=== PATIENT | female | born 1955 | race Asian ===

== ENCOUNTER 2020-02-13 15:48 | Emergency (ER) | payer OTHER ==
[~2020-02-13] VITALS: Ht 148.6 cm; Wt 53.1 kg
[2020-02-13 16:04] VITALS: BP 168/96
--- NOTE | 2020-02-13 16:28 | NUR ---
BIB SON C/O SANTOS FOOT & RIGHT THUMB PAIN & SWELLING X 3 MONTHS.MED HX: HTN. MED HX: LISISNOPRIL , FUROSEMIDE. DENIES N/V/D; SKIN IS PINK/WARM/DRY; AAOX4 WITH EVEN AND STEADY GAIT; LUNGS CLEAR BL; HR EVEN AND REGULAR; PT DENIES ANY FEVER, CP, SOB, OR COUGH AT THIS TIME; PATIENT STATES PAIN OF 8/10 AT THIS TIME. PATIENT POSITIONED FOR COMFORT; HOB ELEVATED; BEDRAILS UP X1; BED DOWN. ER MD MADE AWARE OF PT STATUS.
[2020-02-13] MEDS ORDERED: ACETAMINOPHEN 325 MG TAB PO ONE (16:35)
--- NOTE | 2020-02-13 16:43 | NUR ---
LAB AT BEDSIDE.
[2020-02-13 16:53] LABS: BASOPHILS # (AUTO) 0.1 K/uL (0.00-0.22); BASOPHILS % (AUTO) 0.6 % (0.0-2.0); EOSINOPHILS % (AUTO) 0.4 % (0.0-4.0); HEMATOCRIT 37.1 % (36-48); HEMOGLOBIN 12.3 g/dL (12.0-16.0); LYMPHOCYTES # (AUTO) 2.2 K/uL (2.5-16.5); LYMPHOCYTES % (AUTO) 25.9 % (20.5-51.1); MEAN CORPUSCULAR HEMOGLOBIN 29 pg (27-31); MEAN CORPUSCULAR HGB CONC 33 g/dL (33-37); MEAN CORPUSCULAR VOLUME 86.8 fL (80-94); MONOCYTES # (AUTO) 0.7 K/uL (0.8-1.0); MONOCYTES % (AUTO) 8.9 % (1.7-9.3); NEUTROPHILS # (AUTO) 5.4 K/uL (1.8-7.7); NEUTROPHILS % (AUTO) 64.2 % (42.2-75.2); PLATELET COUNT (AUTO) 466 K/uL (140-450); RED BLOOD CELL COUNT(AUTO) 4.28 MIL/uL (4.20-5.40); RED CELL DISTRIBUTION WIDTH 13.2 % (11.6-13.7); WHITE BLOOD COUNT (AUTO) 8.4 K/uL (4.8-10.8)
[2020-02-13 17:11] LABS: ANION GAP 12.5 (8-16); CREATININE 0.7 mg/dL (0.6-1.3); POTASSIUM 3.5 mmol/L (3.5-5.1)
[2020-02-13 17:48] VITALS: BP 143/80
== END 2020-02-13 17:47 | disposition home or self-care (01) ==
LOC: MED 15:48
DX: I11.0 Hypertensive heart disease with heart failure (principal); M25.472 Effusion, left ankle; M13.0 Polyarthritis, unspecified
CPT/HCPCS: 36415; 71045; 80048; 81002; 83880; 84484; 85025; 93005; 99285; Q0092

== ENCOUNTER 2021-09-12 10:04 | Observation (INO) | payer OTHER ==
[~2021-09-12] VITALS: Ht 147.3 cm; Wt 52.6 kg
[2021-09-12 10:09] VITALS: BP 150/73
--- NOTE | 2021-09-12 10:16 | NUR ---
Sana weiss in [facility] - 09/12/21 at 1018 by [email or web address] THERESA
--- NOTE | 2021-09-12 10:29 | NUR ---
66 Y/O F BIB SELF C/O DIZZINESS, PERES, N/V X YESTERDAY, WORSE THIS MORNING AND WHEN STANDING UP. NKA PMH: HTN
--- NOTE | 2021-09-12 11:08 | NUR ---
DR LAINEZ AT BEDSIDE.
[2021-09-12] MEDS ORDERED: MECLIZINE 25 MG TAB PO ONE (11:15)
[2021-09-12] MEDS ORDERED: NACL 0.9% 1,000 ML IV ONE (11:15)
[2021-09-12] MEDS ORDERED: ACETAMINOPHEN EXTRA STRENGTH 500 MG TAB PO ONE (11:20)
--- NOTE | 2021-09-12 11:22 | NUR ---
PT TO CT VIA [facility].
[2021-09-12 11:59] LABS: BASOPHILS % (AUTO) 0.3 % (0.0-2.0); HEMATOCRIT 38.4 % (36-48); HEMOGLOBIN 12.6 g/dL (12.0-16.0); LYMPHOCYTES # (AUTO) 1.5 K/uL (2.5-16.5); LYMPHOCYTES % (AUTO) 15.1 % (20.5-51.1); MEAN CORPUSCULAR HEMOGLOBIN 28 pg (27-31); MEAN CORPUSCULAR HGB CONC 33 g/dL (33-37); MEAN CORPUSCULAR VOLUME 84.1 fL (80-94); MONOCYTES # (AUTO) 0.4 K/uL (0.8-1.0); MONOCYTES % (AUTO) 4.2 % (1.7-9.3); NEUTROPHILS # (AUTO) 7.7 K/uL (1.8-7.7); NEUTROPHILS % (AUTO) 80.4 % (42.2-75.2); PLATELET COUNT (AUTO) 446 K/uL (140-450); RED BLOOD CELL COUNT(AUTO) 4.56 MIL/uL (4.20-5.40); RED CELL DISTRIBUTION WIDTH 15.1 % (11.6-13.7); WHITE BLOOD COUNT (AUTO) 9.6 K/uL (4.8-10.8)
[2021-09-12 12:20] LABS: ALBUMIN 3.3 g/dL (3.4-5.0); ANION GAP 12.3 (8-16); CARBON DIOXIDE 27.2 mmol/L (21-32); CREATININE 0.5 mg/dL (0.6-1.3); MAGNESIUM 2.3 mg/dL (1.8-2.4); POTASSIUM 3.5 mmol/L (3.5-5.1); TOTAL BILIRUBIN 0.2 mg/dL (0.0-1.0)
[2021-09-12] MEDS ORDERED: diazePAM 5 MG TAB PO ONE (13:00)
[2021-09-12] MEDS ORDERED: ASPI81EC20 PO (13:07)
[2021-09-12] MEDS ORDERED: MECL-303 PO (13:07)
[2021-09-12] MEDS ORDERED: SIMV-33 PO (13:07)
[2021-09-12] MEDS ORDERED: CRUSHER, PILL MC ONE (13:34)
[2021-09-12] MEDS ORDERED: AMLO10TA PO (14:04)
--- NOTE | 2021-09-12 14:50 | NUR ---
GERONIMO SWABED AND WALKED TO THE LAB.
[2021-09-12] MEDS ORDERED: ACETAMINOPHEN 325 MG TAB PO PRN (15:40)
[2021-09-12] MEDS ORDERED: ONDANSETRON 4 MG/2 ML VIAL IVP PRN (15:40)
[2021-09-12] MEDS ORDERED: MORPHINE SULFATE 4 MG/ML SYR IVP PRN (15:40)
[2021-09-12] MEDS ORDERED: POTASSIUM CHLORIDE 10 MEQ TABER PO PRN (15:40)
[2021-09-12] MEDS ORDERED: HYDROcodone/APAP 5/325 MG 1 TAB TAB PO PRN (15:40)
[2021-09-12] MEDS ORDERED: KCL 20 MEQ/WATER INJ PREMIX 200 ML IV PRN (15:40)
[2021-09-12] MEDS ORDERED: MAG SULF 2000 MG/WATER PREMIX 50 ML IV PRN (15:40)
[2021-09-12] MEDS ORDERED: IBUPROFEN 400 MG TAB PO PRN (15:40)
[2021-09-12] MEDS ORDERED: LORazepam 1 MG TAB PO PRN (15:40)
[2021-09-12] MEDS ORDERED: MAGNESIUM OXIDE 400 MG TAB PO PRN (15:40)
[2021-09-12] MEDS: NACL 0.9% 1,000 ML IV SCH (16:09)
[2021-09-12 16:33] VITALS: BP 110/54
--- NOTE | 2021-09-12 16:33 | NUR ---
[facility], BEDSIDE REPORT GIVEN BY KAMILA. PT AWAKE, ALERT AND ABLE TO MAKE NEEDS KNOWN BY SPEAKS AMHARIC ONLY. SON AT BEDSIDE. BREATHING SYMMETRICAL ON ROOM AIR. DENIES PAIN AT THIS TIME. DENIES DIZZINESS AT THIS TIME. PT IS A [employer] AND FAMILY REQUESTS NO PORK, SEAFOOD OR BEEF ON MEALS. CALLED [facility] AND SPOKE WITH REDD AND MADE AWARE. LAC 20G WITH NS AT 80CC/HR. CALL LIGHT WITHIN REACH. ALL SAFETY MEASURES IN PLACE.
--- NOTE | 2021-09-12 16:39 | NUR ---
Pt report given to JIM POOLE. Transfer of care at this time.
--- NOTE | 2021-09-12 19:15 | NUR ---
ENDORSED PT TO STICK PULLER NURSE, PT IN STABLE CONDITION
--- NOTE | 2021-09-12 19:30 | NUR ---
RECEIVED BEDSIDE REPORT FROM DAY SHIFT NURSE. PATIENT IS AWAKE ON THE PHONE. SON AT BEDSIDE. RESPIRATION EVEN UNLABORED ON ROOM AIR, NO DISTRESS NOTED. SKIN IS WARM AND DRY. IV PATENT AND INTACT. PLAN OF CARE WAS DISCUSSED. ALL SAFETY MEASURES IN PLACE. BED IS AT LOW POSITION. CALL LIGHT WITHIN REACH. WILL CONTINUE TO MONITOR.
[2021-09-12 20:00] VITALS: BP 127/58
--- NOTE | 2021-09-12 21:00 | NUR ---
MADE ROUNDS, PATIENT SLEEPING RESPIRATION EVEN UNLABORED ON ROOM AIR NO DISTRESS NOTED. WILL CONTINUE TO MONITOR
[2021-09-12] MEDS ORDERED: MECLIZINE 25 MG TAB PO PRN (21:45)
[2021-09-13] VITALS: BP 125/68
--- NOTE | 2021-09-13 00:10 | NUR ---
VITALS WERE TAKEN.
--- NOTE | 2021-09-13 01:45 | NUR ---
MADE ROUNDS, PATIENT SLEEPING RESPIRATION EVEN UNLABORED ON ROOM AIR NO DISTRESS NOTED. WILL CONTINUE TO MONITOR
[2021-09-13 04:00] VITALS: BP 124/69
--- NOTE | 2021-09-13 04:10 | NUR ---
VITALS WERE TAKEN
[2021-09-13] MEDS: NACL 0.9% 1,000 ML IV SCH (04:36)
[2021-09-13 05:32] LABS: BASOPHILS % (AUTO) 0.5 % (0.0-2.0); EOSINOPHILS # (AUTO) 0.1 K/uL (0-0.4); HEMATOCRIT 37.2 % (36-48); HEMOGLOBIN 12.4 g/dL (12.0-16.0); LYMPHOCYTES # (AUTO) 2.3 K/uL (2.5-16.5); LYMPHOCYTES % (AUTO) 29.3 % (20.5-51.1); MEAN CORPUSCULAR HEMOGLOBIN 28 pg (27-31); MEAN CORPUSCULAR HGB CONC 33 g/dL (33-37); MONOCYTES # (AUTO) 0.6 K/uL (0.8-1.0); MONOCYTES % (AUTO) 7.7 % (1.7-9.3); NEUTROPHILS # (AUTO) 4.9 K/uL (1.8-7.7); NEUTROPHILS % (AUTO) 61.5 % (42.2-75.2); PLATELET COUNT (AUTO) 431 K/uL (140-450); RED BLOOD CELL COUNT(AUTO) 4.38 MIL/uL (4.20-5.40); RED CELL DISTRIBUTION WIDTH 15.1 % (11.6-13.7)
[2021-09-13 06:06] LABS: ANION GAP 11.2 (8-16); CREATININE 0.5 mg/dL (0.6-1.3); MAGNESIUM 2.1 mg/dL (1.8-2.4); POTASSIUM 3.2 mmol/L (3.5-5.1); TOTAL BILIRUBIN 0.2 mg/dL (0.0-1.0)
--- NOTE | 2021-09-13 06:10 | NUR ---
URINE COLLECTED, SENT TO LAB
[2021-09-13 07:25] LABS: APPEARANCE,URINE CLEAR (CLEAR); BILIRUBIN,URINE NEGATIVE (NEGATIVE); BLOOD, URINE TRACE-I (NEGATIVE); COLOR,URINE YELLOW (YELLOW); LEUKOCYTE ESTERASE ,URINE 1+ (NEGATIVE); NITRITE, URINE NEGATIVE (NEGATIVE); UGLUCOSE NEGATIVE (NEGATIVE)
--- NOTE | 2021-09-13 07:30 | NUR ---
ENDORSED PATIENT TO DAY SHIFT NURSE FOR CONTINUITY OF CARE
[2021-09-13 07:45] LABS: RBC,URINE 0-5 /HPF (0-5); WBC,URINE 0-5 /HPF (0-5)
[2021-09-13 07:46] LABS: CALCIUM OXALATE CRYSTALS,UR None Seen /HPF (None Seen); COARSE GRANULAR CASTS,URINE None Seen /LPF (None Seen); FINE GRANULAR CASTS,URINE None Seen /LPF (None Seen); HYALINE CASTS, URINE None Seen /LPF (None Seen); OTHER CASTS, URINE None Seen /LPF (None Seen); OTHER CRYSTALS,URINE None Seen /HPF (None Seen); RED BLOOD CELL CASTS,URINE None Seen /LPF (None Seen); TRICHOMONAS,URINE None Seen /HPF (None Seen); TRIPLE PHOSPHATE CRYSTAL,UR None Seen /HPF (None Seen); URIC ACID CRYSTALS,URINE None Seen /HPF (None Seen); URINE AMORPHOUS URATE None Seen /HPF (None Seen); WAXY CASTS,URINE None Seen /LPF (None Seen); YEAST,URINE None Seen /HPF (None Seen)
--- NOTE | 2021-09-13 07:52 | NUR ---
RECEIVED REPORT FROM [employer] PROFESSOR FOR CONTINUITY OF CARE. PATIENT ALERT AWAKE ORIENTED X4, NOT IN DISTRESS NOTED. WITH IVF ON GOING AND INFUSING WELL. ON MONITOR SHOWS SR. DENIES CHEST PAIN, NO DIZZINESS. NEEDS ATTENDED. WILL CONTINUE TO MONITOR.
[2021-09-13 08:00] VITALS: BP 136/68
--- NOTE | 2021-09-13 08:54 | NUR ---
PATIENT HAS BEEN SCREENED AND CATEGORIZED LOW NUTRITION RISK. PATIENT WILL BE SEEN WITHIN 7 DAYS OF ADMISSION. 09/19/[address]
[2021-09-13 12:00] VITALS: BP 130/72
[2021-09-13] MEDS ORDERED: MECL-231 PO (14:25)
[2021-09-13] MEDS ORDERED: CEFU500T73 PO (14:25)
[2021-09-13] MEDS ORDERED: ASPI-1822 PO (14:25)
--- NOTE | 2021-09-13 14:30 | NUR ---
DC PLANNING: THE PATIENT PRESENTED FROM HOME TO THE ER WITH C/O ACUTE DIZZINESS AND PERES, DIZZINESS EXACERBATED WHEN GOING FROM SITTING TO STANDING POSITION. H/O HTN, LABS WNL'S, EKG NEGATIVE FOR ACUTE FINDINGS. CT HEAD ALSO NEGATIVE FOR ACUTE FINDINGS, PATIENT GIVEN IVF'S, MECLIZINE AND DIAZEPAM AND ADMITTED FOR OBSERVATION BECAUSE OF PERSISTENT VERTIGO AND GAIT ATAXIA. P.T. EVALUATION, PATIENT ABLE TO AMBULATE 120 FEET WITHOUT ASSIST, DC'D FROM P.T. SERVICE. CM SPOKE WITH THE PATIENT AND HER SON AT BEDSIDE PATIENT IS CITIZEN OF [place] SPEAKING ONLY. SHE LIVES IN A GROUND FLOOR APARTMENT WITH HER SON, DAUGHTER IN LAW AND GRANDCHILDREN. SHE IS INDEPENDENT IN ALL ACTIVITIES AND HAS NO H/O HOME HEALTH OR DME. SHE SEES HER PCP DR ELIZABETH REGULARLY AND IS ASSISTED BY HER FAMILY WITH ANY NEEDS. NO DC NEEDS IDENTIFIED, PLAN IS FOR HER TO RETURN HOME WHEN CLINICALLY STABLE, HER SON WILL PROVIDE TRANSPORT HOME. CM WILL FOLLOW.
--- NOTE | 2021-09-13 14:40 | NUR ---
SEEN BY DR. KEITH WITH DC ORDER AND NOTED.
--- NOTE | 2021-09-13 14:59 | NUR ---
PATIENT DC TO HOME ACCOMPANIED BY THE SON AMBULATORY, NOT IN ANY DISTRESS NOTED, DC INSTRUCTION AND PRESCRIPTION GIVEN TO THE SON PRISS AND VERBALIZED UNDERSTANDING. IN STABLE CONDITION.
== END 2021-09-13 15:05 | disposition home or self-care (01) ==
LOC: MED 10:04 → MTU 15:44
PROVIDERS: ADMIT Internal Medicine; ATTEND Internal Medicine
DX: R42 Dizziness and giddiness (principal); Z20.822 Contact with and (suspected) exposure to COVID-19; I10 Essential (primary) hypertension; R82.90 Unspecified abnormal findings in urine; R26.89 Other abnormalities of gait and mobility; Z86.73 Personal history of transient ischemic attack (TIA), and cerebral infarction without residual deficits; Z79.899 Other long term (current) drug therapy
CPT/HCPCS: 36415; 70450; 80053; 81001; 82948; 83735; 85025; 87081; 87086; 87426; 93005; 96360; 96361; 97116; 97162; 97530; 99284; G0378; J7030; J8597

== ENCOUNTER 2022-12-17 07:28 | Emergency (ER) | payer OTHER ==
[~2022-12-17] VITALS: Ht 149.9 cm; Wt 56.7 kg
[~2022-12-17 07:28] MED LIST: AMLO10TA PO; ASPI-1822 PO; CEFU500T73 PO; MECL-231 PO
[2022-12-17 07:46] VITALS: BP 130/75; PULSE 75; RESP 20; TEMP 98; O2SAT 99
[2022-12-17 08:35] VITALS: O2SAT 99
[2022-12-17] MEDS ORDERED: HYDROcodone/APAP 5/325 MG 1 TAB TAB PO ONE (08:35)
[2022-12-17] MEDS ORDERED: KETOROLAC 30 MG/ML VIAL IM ONE (08:35)
--- NOTE | 2022-12-17 08:40 | NUR ---
AWAKE ALERT CONVERSANT, FAMILY AT BEDSIDE
[2022-12-17] MEDS ORDERED: CYCL-711 PO (09:14)
[2022-12-17] MEDS ORDERED: NAPR-1704 PO (09:14)
--- NOTE | 2022-12-17 09:27 | NUR ---
Patient discharged with v/s stable. Written and verbal after care instructions given and explained. Patient alert, oriented and verbalized understanding of instructions. Ambulatory with steady gait. All questions addressed prior to discharge. ID band removed. Patient advised to follow up with PMD. Rx of FLEXERIL, NAPROXEN given. Patient educated on indication of medication including possible reaction and side effects. Opportunity to ask questions provided and answered.
== END 2022-12-17 09:27 | disposition home or self-care (01) ==
LOC: MED 07:28
DX: M54.12 Radiculopathy, cervical region (principal); M79.601 Pain in right arm; M79.602 Pain in left arm; I10 Essential (primary) hypertension; Z79.899 Other long term (current) drug therapy
CPT/HCPCS: 72040; 96372; 99283; J1885

== ENCOUNTER 2023-07-15 20:33 | Emergency (ER) | payer OTHER ==
[~2023-07-15] VITALS: Ht 147.3 cm; Wt 52.2 kg
[~2023-07-15 20:33] MED LIST changes: +CYCL-711 PO; +NAPR-1704 PO
[2023-07-15 20:38] VITALS: BP 143/84; PULSE 67; RESP 16; TEMP 98.4; O2SAT 97
[2023-07-15 21:11] VITALS: O2SAT 97
[2023-07-15] MEDS: ACETAMINOPHEN EXTRA STRENGTH 500 MG TAB PO ONE (21:16)
[2023-07-15 21:39] LABS: BASOPHILS # (AUTO) 0.1 K/uL (0.00-0.22); BASOPHILS % (AUTO) 0.7 % (0.0-2.0); EOSINOPHILS # (AUTO) 0.2 K/uL (0-0.4); EOSINOPHILS % (AUTO) 2.1 % (0.0-4.0); HEMATOCRIT 36.8 % (36-48); HEMOGLOBIN 12.8 g/dL (12.0-16.0); LYMPHOCYTES # (AUTO) 2.4 K/uL (2.5-16.5); LYMPHOCYTES % (AUTO) 28.3 % (20.5-51.1); MEAN CORPUSCULAR HEMOGLOBIN 30 pg (27-31); MEAN CORPUSCULAR HGB CONC 35 g/dL (33-37); MEAN CORPUSCULAR VOLUME 85.4 fL (80-94); MONOCYTES % (AUTO) 11.2 % (1.7-9.3); NEUTROPHILS % (AUTO) 57.7 % (42.2-75.2); PLATELET COUNT (AUTO) 483 K/uL (140-450); RED CELL DISTRIBUTION WIDTH 14.8 % (11.6-13.7); WHITE BLOOD COUNT (AUTO) 8.6 K/uL (4.8-10.8)
[2023-07-15 22:05] LABS: BILIRUBIN,URINE NEGATIVE (NEGATIVE); BLOOD, URINE TRACE-I (NEGATIVE); COLOR,URINE YELLOW (YELLOW); LEUKOCYTE ESTERASE ,URINE TRACE (NEGATIVE); NITRITE, URINE POSITIVE (NEGATIVE); PH,URINE 6.5 (5.0-9.0); PROTEIN,URINE NEGATIVE (NEGATIVE); UGLUCOSE NEGATIVE (NEGATIVE); UROBILINOGEN,URINE 0.2 EU/dL (0.2 - 1)
[2023-07-15 22:06] LABS: APPEARANCE,URINE SLIGHTLY CLOUDY (CLEAR)
[2023-07-15 22:07] LABS: ANION GAP 12.7 (8-16); CALCIUM 9.6 mg/dL (8.5-10.1); CARBON DIOXIDE 27.4 mmol/L (21-32); CREATININE 0.6 mg/dL (0.6-1.3); POTASSIUM 4.1 mmol/L (3.5-5.1)
[2023-07-15 22:08] LABS: BACTERIA,URINE 1+ /HPF (None Seen); RBC,URINE 0-5 /HPF (0-5); SQUAMOUS EPITHELIAL CELL,UR 4-10 (MOD) /LPF (0-3 (FEW)); WBC,URINE 0-5 /HPF (0-5)
[2023-07-15] MEDS ORDERED: ACET-10509 PO (22:08)
[2023-07-15] MEDS ORDERED: CYCL-711 PO (22:08)
[2023-07-15 22:09] LABS: MUCUS,URINE None Seen /LPF (None Seen)
[2023-07-15] MEDS ORDERED: CEPH-588 PO (22:11)
== END 2023-07-15 22:26 | disposition home or self-care (01) ==
LOC: MED 20:33
DX: R51.9 Headache, unspecified (principal); N39.0 Urinary tract infection, site not specified; I10 Essential (primary) hypertension; Z79.899 Other long term (current) drug therapy; Z79.82 Long term (current) use of aspirin
CPT/HCPCS: 36415; 70450; 80048; 81001; 85025; 99284